=== PATIENT | male | born 2000 | race Caucasian/White ===

== ENCOUNTER → 2023-02-25 16:23 | Outpatient (BNVA) | payer OTHER, SELFPAY | PROVIDERS: Family Provider Family Medicine; PCP Family Medicine; Referring Provider Family Medicine; Visit Provider Internal Medicine Cardiovascular Disease | DX: F14.11 Cocaine abuse, in remission (principal) | CPT/HCPCS: 93005 ==

== ENCOUNTER 2023-03-06 07:01 | Outpatient (CLI) | payer OTHER, SELFPAY ==
--- NOTE | 2023-03-06 07:15 | USCV_ITS ---
Ray Thurman Age: 23 Gender: M : 2000 Exam Date: 03/06/2023 07:16 Ordering Phys: Dada Garcia DO Technologist: CARMINE Exam Location: [facility] [place] Indication: CHEST PAIN WITH COCAINE USE BP: 126 / 76 HR: 57 Rhythm: Sinus Technical Quality: Adequate MEASUREMENTS (Male / Female) Normal Values 2D ECHO LVOT Diameter 2.0 cm LV Ejection Fraction MOD 2C 62.8 % LV Ejection Fraction 2C AL 61.1 % LA Diameter 2.8 cm LA Width 2.6 cm LA Height 4.6 cm RA Width 3.2 cm RA Height 4.5 cm Aorta at Sinotubular Diameter 2.3 cm IVC Diameter 1.7 cm M-MODE Aortic Annulus Diameter 3.1 cm LA Ao Ratio MM 0.8 MV E Point Septal Separation 1.6 cm DOPPLER AV Peak Velocity 127.0 cm/s LVOT Peak Velocity 111.0 cm/s AV Area Cont Eq vti 3.2 cm squared AV Area Cont Eq pk 2.7 cm squared MV Peak Velocity 90.0 cm/s MV Area PHT 2.4 cm squared Mitral E to A Ratio 1.8 MV E' Velocity 51.0 cm/s Mitral E to MV E' Ratio 4.4 Mitral E to LV E' Lateral Ratio 4.3 Mitral E to LV E' Septal Ratio 4.5 TR Peak Velocity 274.8 cm/s TR Peak Gradient 30.2 mmHg TR Mean Velocity 234.6 cm/s TR Mean Gradient 22.0 mmHg TR Velocity Time Integral 90.9 cm TV Peak E Velocity 63.0 cm/s Right Atrial Pressure 3.0 mmHg Pulmonary Artery Systolic Pressu 33.2 mmHg PV Peak Velocity 113.0 cm/s RV Acceleration Time 0.1 s RV Ejection Time 0.3 s RV AcT/ET 0.5 FINDINGS Left Ventricle Normal left ventricular size, systolic function and wall thickness, with no regional wall motion abnormalities. Left ventricular ejection fraction is estimated at 65 %. Normal diastolic function. Right Ventricle Normal right ventricular size and systolic function. RVSP could not be calculated due to incomplete tricuspid regurgitation velocity profile. Right Atrium Normal right atrial size. Left Atrium Normal left atrial size. Mitral Valve Structurally normal mitral valve. No mitral valve stenosis. Trace mitral valve regurgitation. Aortic Valve Structurally normal trileaflet aortic valve. No aortic valve stenosis. No aortic valve regurgitation. Tricuspid Valve Structurally normal tricuspid valve. Trace to mild tricuspid valve regurgitation. Pulmonic Valve Pulmonic valve not well visualized. Pericardium No pericardial effusion. Aorta Normal size aortic root and proximal ascending aorta. IVC Normal IVC dimension with >50% respiratory change of the inferior vena cava. CONCLUSIONS 1. Normal left ventricular size, systolic function and wall thickness, with no regional wall motion abnormalities. Left ventricular ejection fraction is estimated at 65 %. Normal diastolic function. 2. Trace to mild tricuspid valve regurgitation. 3. No prior similar studies to compare. Toshia Seay MD (Electronically Signed) Final Date: 10 March 2023 22:54 S
== END 2023-03-06 07:02 | disposition home or self-care (01) ==
PROVIDERS: PCP Family Medicine; Visit Provider Family Medicine
DX: R07.9 Chest pain, unspecified (principal); F14.11 Cocaine abuse, in remission; I07.1 Rheumatic tricuspid insufficiency
CPT/HCPCS: 93306

== ENCOUNTER → 2023-03-17 10:15 | Outpatient (BNVA) | payer OTHER, SELFPAY | PROVIDERS: PCP Family Medicine; Visit Provider Family Medicine | DX: Z00.00 Encounter for general adult medical examination without abnormal findings (principal); D18.00 Hemangioma unspecified site; F14.11 Cocaine abuse, in remission; R94.31 Abnormal electrocardiogram [ECG] [EKG]; E03.9 Hypothyroidism, unspecified | CPT/HCPCS: 80053; 84443; 85025 ==

== ENCOUNTER → 2023-12-24 14:09 | Outpatient (BNVA) | payer OTHER, SELFPAY | PROVIDERS: PCP Family Medicine; Visit Provider Nurse Practitioner Family | DX: Z20.2 Contact with and (suspected) exposure to infections with a predominantly sexual mode of transmission (principal); J34.89 Other specified disorders of nose and nasal sinuses; Z11.3 Encounter for screening for infections with a predominantly sexual mode of transmission | CPT/HCPCS: 87491; 87591 ==

== ENCOUNTER 2025-01-20 17:00 | Emergency (ER) | payer OTHER, SELFPAY ==
[2025-01-20 17:05] VITALS: BP 123/74; PULSE 71; RESP 17; TEMP 36.8; O2SAT 98; BMI 23.7
--- OUTSIDE RECORDS SUMMARY | 2025-01-20 17:07 | XMS_ITS | Encounter Summary ---
Author Organization [facility] Address [address] [place] [address] Care Team Providers Care Used Car Make Ready Mechanic Name Role Phone Unavailable Primary Care Provider Unavailabl e Encounter Details Date Type Department Care Team (Latest Contact Info) Description 09/20/[address] 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
--- OUTSIDE RECORDS SUMMARY | 2025-01-20 17:07 | XMS_ITS | Clinical Summary ---
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
--- OUTSIDE RECORDS SUMMARY | 2025-01-20 17:07 | XMS_ITS | Encounter Summary ---
Author Organization [facility] Address [address] [place] [address] Care Team Providers Care Ore Miner Blasting Name Role Phone Unavailable Primary Care Provider Unavailabl e Encounter Details Date Type Department Care Team (Latest Contact Info) Description 10/03/2003 Outpatient Historical [facility] Operating [address] [place] [id number] Non-Staff, Physician NO ADDRESS ON FILE NOSE ANOMALY NEC (Primary Dx) Social History Tobacco Use Types Packs/Day Years Used Date Smoking Tobacco: Never Assessed Sex and Gender Information Value Date Recorded Sex Assigned at Not on file 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
--- NOTE | 2025-01-20 17:11 | USR_ITS ---
PROCEDURE INFORMATION: Exam: US Scrotum Exam date and time: 01/20/2025 5:32 PM Age: 24 years old Clinical indication: Scrotum pain; Additional info: Nodule right testicle painful TECHNIQUE: Imaging protocol: Real-time ultrasound of the scrotum and contents with color Doppler and image documentation. COMPARISON: No relevant prior studies available. FINDINGS: Right testicle: Normal. No mass. Normal color Doppler and arterial waveforms. No torsion. Right testicle measuring 4.3 x 2.4 x 3.0 cm. Left testicle: Normal. No mass. Normal color Doppler and arterial waveforms. No torsion. Left testicle measuring 3.7 x 2.4 x 3.2 cm. Epididymides: Right epididymis measuring 2.2 x 1.2 x 1.8 cm. Solid nodule with heterogeneous echogenicity and internal vascularity measuring 2.9 x 2.0 x 2.9 cm. Left epididymis measuring 1.6 x 1.0 x 2.4 cm. Negative Scrotum/soft tissues: Normal. No hydroceles. US/US scrotum [id number] IMPRESSION: 1. Negative for testicular torsion. No findings to suggest orchitis. 2. Solid nodule with heterogeneous echogenicity adjacent to or within the right epididymis, measuring 2.9 x 2.0 x 2.9 cm. The nodule demonstrates internal vascularity. Question adenomatoid tumor.
--- NOTE | 2025-01-20 17:25 | PC.NURSE ---
educated pt on need for urine sample, provided pt with urinal
--- NOTE | 2025-01-20 17:26 | W.ED.MALEGU ---
HPI - Male Genitourinary General: Chief complaint: Urogenital-Male Stated complaint: male part problems Time Seen by Provider: 01/20/25 17:10 History of Present Illness: 24-year-old male who presents to the ED with right scrotal swelling and pain since yesterday. Patient states that he noticed a mass in his right scrotum yesterday but did not experience pain until earlier today. He states the swelling and pain has gotten worse and rates the pain 6 out of 10. Denies any penile discharge, dysuria, urinary frequency or incontinence. No other complaints at this time. Associated symptoms: Deny dysuria, hematuria, nausea or vomiting Related Data Home Medications ?Medication ?Instructions ?Recorded ?Confirmed fluticasone propionate 50 1 spray intranasal DAILY 04/11/22 12/24/23 mcg/actuation nasal spray,suspension Previous Rx's ?Medication ?Instructions ?Recorded ibuprofen 600 mg tablet 600 mg PO Q8H PRN pain #45 tabs 10/03/23 ciprofloxacin HCl 500 mg tablet 500 mg PO BID #20 tabs 01/20/25 hydrocodone 5 mg-acetaminophen 325 1 tab PO Q6H PRN pain #15 tabs 01/20/25 mg tablet Allergies Allergy/AdvReac Type Severity Reaction Status Date / Time No Known Allergies Allergy Verified 12/24/23 13:17 Review of Systems Const: Denies: fever(s) or chills Card: Denies: chest pain Resp: Denies: dyspnea GI: Denies: abdominal pain, nausea, vomiting or change in bowel habits : Reports: testicular pain, testicular mass and scrotal swelling; Denies: difficulty urinating, dysuria, hematuria or penile discharge REPLACED BY [facility] PFSH: Social History Smoking and tobacco/nicotine status: never used tobacco/nicotine Physical Exam Const: COMMON NORMALS: no acute distress, patient oriented x3, alert and well nourished HENMT: COMMON NORMALS: normocephalic HEAD & SCALP: normocephalic Resp: COMMON NORMALS: normal respiratory effort Cardio: COMMON NORMALS: regular rate and regular rhythm RATE: regular rate RHYTHM: regular rhythm : PENIS: normal penis TESTES: Yes testicular swelling, Yes testicular tenderness and Yes testicular mass Neuro: COMMON NORMALS: patient oriented x3 SENSORIUM/ORIENTATION: Yes alert Course Vital Signs: Vital signs: Vital Signs Temperature 98.2 F 01/20/25 17:05 Pulse Rate 77 01/20/25 18:23 Respiratory Rate 17 01/20/25 17:05 Blood Pressure 121/69 01/20/25 18:23 Pulse Oximetry 100 01/20/25 18:23 Oxygen Delivery Me thod Room Air 01/20/25 17:05 MDM - Male Medical Decision Making Ultrasound has nodule that is somewhat concerning. He does have elevated white blood cell count and white blood cells in the urine we will treat with Cipro 500 twice daily for 10 days he does need a follow-up ultrasound and urology consultation regarding the finding on the ultrasound today. Stressed the importance that he must have a follow-up on this even if he is feeling better. Medical Records I reviewed the patient's medical records. Lab Data I reviewed the patient's lab results. 01/20/25 17:23 01/20/25 17:23 Radiology Impressions Scrotum Ultrasound 01/20/25 17:11 IMPRESSION: 1. Negative for testicular torsion. No findings to suggest orchitis. 2. Solid nodule with heterogeneous echogenicity adjacent to or within the right epididymis, measuring 2.9 x 2.0 x 2.9 cm. The nodule demonstrates internal vascularity. Question adenomatoid tumor. Laboratory Results WBC 11.62 10^3/uL (3.29-11.43) H 01/20/25 17:23 RBC 4.62 10^6/uL (3.85-5.65) 01/20/25 17:23 Hgb 13.90 g/dL (11.27-16.99) 01/20/25 17:23 Hct 40.6 % (37-53) 01/20/25 17:23 MCV 87.9 fl (82-101) 01/20/25 17:23 MCH 30.1 pg (27-33) 01/20/25 17:23 MCHC 34.2 g/dL (30-55) 01/20/25 17:23 RDW 12.5 % (12.1-15.1) 01/20/25 17:23 Plt Count 199 10^3/cmm (157-399) 01/20/25 17:23 MPV 8.3 fL (7.4-10.4) 01/20/25 17:23 Neut % (Auto) 71.8 % 01/20/25 17:23 Lymph % (Auto) 17.5 % 01/20/25 17:23 [place] % (Auto) 9.8 % 01/20/25 17:23 Eos % (Auto) 0.3 % 01/20/25 17:23 Baso % (Auto) 0.3 % 01/20/25 17:23 Neut # (Auto) 8.33 10^3/uL (1.8-7.7) H 01/20/25 17:23 Lymph # (Auto) 2.0 10^3/uL (0.8-4.8) 01/20/25 17:23 [place] # (Auto) 1.1 10^3/uL (0.2-0.9) H 01/20/25 17:23 Eos # (Auto) 0.0 10^3/uL (0.0-0.8) 01/20/25 17:23 Baso # (Auto) 0.0 10^3/uL (0.0-0.1) 01/20/25 17:23 Nucleated RBC % (auto) 0 % 01/20/25 17:23 Nucleated RBCs # 0.0 /100WBC 01/20/25 17:23 Sodium 139 mmol/L (136-145) 01/20/25 17:23 Potassium 4.2 mmol/L (3.5-5.1) 01/20/25 17:23 Chloride 100 mmol/L (98-107) 01/20/25 17:23 Carbon Dioxide 27 mmol/L (22-29) 01/20/25 17:23 Anion Gap 16.2 (5-19) 01/20/25 17:23 BUN 12 mg/dL (6-20) 01/20/25 17:23 Creatinine 0.8 mg/dL (0.7-1.2) 01/20/25 17:23 GFR Calculation 120.9 mL/min (90-130) 01/20/25 17:23 Glucose 83 mg/dL (65-115) 01/20/25 17:23 Calculated Osmolality 287 mOsm/kg (285-295) 01/20/25 17:23 Calcium 9.2 mg/dL (8.5-10.5) 01/20/25 17:23 Total Bilirubin 0.4 mg/dL (0.15-1.2) 01/20/25 17:23 AST 14 U/L (0-40) 01/20/25 17:23 ALT 9 U/L (0-41) 01/20/25 17:23 Alkaline Phosphatase 56 U/L (40-130) 01/20/25 17:23 Total Protein 7.2 g/dL (6.6-8.7) 01/20/25 17:23 Albumin 4.4 g/dL (3.5-5.2) 01/20/25 17:23 Globulin 2.8 g/dL (1.3-4.6) 01/20/25 17:23 Urine Color Yellow (Yellow) 01/20/25 18:23 Urine Appearance Clear (CLEAR) 01/20/25 18:23 Urine pH 6.0 (5-7) 01/20/25 18:23 Ur Specific [place] 1.027 (1.005-1.030) 01/20/25 18:23 Urine Protein Negative (Negative) 01/20/25 18:23 Urine Glucose (UA) Negative (Normal) 01/20/25 18:23 Urine Ketones Negative (Negative) 01/20/25 18:23 Urine Blood Negative (Negative) 01/20/25 18:23 Urine Nitrate Negative (Negative) 01/20/25 18:23 Urine Bilirubin Negative (Negative) 01/20/25 18:23 Urine Urobilinogen 1.0 mg/dL (Negative) 01/20/25 18:23 Ur Leukocyte Esterase 1+ (Negative) A 01/20/25 18:23 Urine RBC 0-2 /hpf (0-2) 01/20/25 18:23 Urine WBC 11-20 /hpf (0-5) H 01/20/25 18:23 Ur Squamous Epith Cells 0-5 /hpf (0-5) 01/20/25 18:23 Amorphous Sediment Not Reportable 01/20/25 18:23 Urine Bacteria None seen /hpf (NONE) 01/20/25 18:23 Hyaline Casts 0.40 /lpf 01/20/25 18:23 All radiology interpretation(s) finalized by discharge Discharge Plan Discharge Patient Disposition: Home Clinical Impression: Testicular nodule, Cystitis Condition: Stable Prescriptions: New ciprofloxacin HCl 500 mg tablet 500 mg PO BID Qty: 20 0RF hydrocodone-acetaminophen 5-325 mg tablet 1 tab PO Q6H PRN (Reason: pain) Qty: 15 0RF No Action fluticasone propionate 50 mcg/actuation spray,suspension 1 spray intranasal DAILY Rx Instructions: administer into each nostril ibuprofen 600 mg tablet 600 mg PO Q8H PRN (Reason: pain) Qty: 45 0RF Discharge Orders: Discharge ED (Routine); Ordered 01/20/25 Ordered By: John Rabago Referrals: Dada Garcia DO [Primary Care Provider, Family Practice] Discharge Diet: Usual diet Discharge Activity: Increase activity as tolerated Patient Instructions: Opioid Safety, Pain Management, Patient Portal & Suhail Instructions Activity Restrictions/Additional Instructions: Thank you for choosing [facility] for your healthcare needs today. It is very important that you follow up as instructed or that you return to the Emergency Department should you have concerns or if your condition changes or worsens in any way. You were seen in the emergency room with complaint of right testicular pain with a nodule. Ultrasound shows a solid nodule that will need follow-up. He would also slight elevated white count and white blood cells in your urine recommend starting on antibiotics 1 pill twice a day for 10 days manager of case management will make arrangements for you to follow-up with urology. Is very important that you follow-up on this even if it feels like it is improved. Print Language: Yi Coding Level of Care Code ED Liquor Commissioner for Delfin Herman
[2025-01-20 17:31] LABS: Hematocrit 40.6 % (37-53); Hemoglobin 13.90 g/dL (11.27-16.99); Mean Corpuscular HGB Conc 34.2 g/dL (30-55); Mean Corpuscular Hemoglobin 30.1 pg (27-33); Mean Corpuscular Volume 87.9 fl (82-101); Nucleated Red Blood Cells % 0 %; Platelet Count 199 10^3/cmm (157-399); Red Blood Count 4.62 10^6/uL (3.85-5.65); White Blood Count 11.62 10^3/uL (3.29-11.43)
[2025-01-20 17:54] LABS: Alanine Aminotransferase 9 U/L (0-41); Albumin Level 4.4 g/dL (3.5-5.2); Alkaline Phosphatase 56 U/L (40-130); Anion Gap 16.2 (5-19); Aspartate Amino Transferase 14 U/L (0-40); Blood Urea Nitrogen 12 mg/dL (6-20); Calcium 9.2 mg/dL (8.5-10.5); Carbon Dioxide 27 mmol/L (22-29); Chloride 100 mmol/L (98-107); Creatinine Clr Calc Pharmacy 174.4868; Globulin 2.8 g/dL (1.3-4.6); Glucose 83 mg/dL (65-115); Osmolality Calculated 287 mOsm/kg (285-295); Potassium 4.2 mmol/L (3.5-5.1); Sodium 139 mmol/L (136-145); Total Protein 7.2 g/dL (6.6-8.7)
[2025-01-20 18:23] VITALS: BP 121/69; PULSE 77; O2SAT 100
[2025-01-20 18:38] LABS: Glucose Urine UA Negative (Normal); Nitrate Urine Negative (Negative); Specific Gravity, Urine 1.027 (1.005-1.030)
[2025-01-20 18:44] LABS: Add Urine Microscopic? YES
[2025-01-20 19:18] VITALS: BP 142/83; PULSE 83; O2SAT 98
--- NOTE | 2025-01-25 09:10 | PC.SOCIAL ---
Urology Referral Spoke with patient and referral faxed to [facility] at [phone]. Patient provided phone number of [phone] to f/u if they do not contact him.
== END 2025-01-20 19:15 | disposition home or self-care (01) ==
PROVIDERS: Emergency Provider Family Medicine; PCP Family Medicine
DX: N49.2 Inflammatory disorders of scrotum (principal); N30.90 Cystitis, unspecified without hematuria
CPT/HCPCS: 36415; 76870; 80053; 81001; 85025; 99284

== ENCOUNTER → 2025-04-28 11:03 | Outpatient (BNVA) | payer OTHER, SELFPAY | PROVIDERS: PCP Family Medicine; Visit Provider Nurse Practitioner | DX: Z20.2 Contact with and (suspected) exposure to infections with a predominantly sexual mode of transmission (principal) | CPT/HCPCS: 87491; 87591; 87661 ==